=== PATIENT | male | born 1955 | race Caucasian/White ===

== ENCOUNTER → 2017-12-20 | Outpatient (CLI) | payer BC | LOC: CIMAGING 08:41 | PROVIDERS: ATTEND Internal Medicine | DX: K80.20 Calculus of gallbladder without cholecystitis without obstruction (principal) | CPT/HCPCS: 76705-PO ==

== ENCOUNTER 2018-01-01 10:04 | Day surgery (SDC) | payer BC ==
[~2018-01-01 10:04] MED LIST: cefOXitin SODIUM 2 GM in NS 100 ML IV ONE
[2018-01-01] MEDS ORDERED: LIDOCAINE 1% 2 ML INJ ID PRN (10:24)
[2018-01-01] MEDS ORDERED: LR 1,000 ML IV ONE (10:24)
--- NOTE | 2018-01-01 12:13 | PDHPUP ---
History & Physical Update H&P update statement: This history and physical update is based on an assessment of the patient which was completed after admission or registration (within 24 hours), but prior to the surgery/procedure. H&P update: H&P reviewed & patient examined, no change in patient's condition since H&P completed
[2018-01-01] MEDS ORDERED: MIDAZOLAM 2 MG/2 ML VIAL IVP ONE (12:28)
--- NOTE | 2018-01-01 12:29 | PDANEPAE ---
ANE History of Present Illness here for lap janie DAVIS ANE Past Medical History - Cardiovascular History Hx Hypertension: Yes Hx Arrhythmias: No Hx Chest Pain: No Hx Coronary Artery / Peripheral Vascular Disease: No Hx CHF / Valvular Disease: No Hx Palpitations: Yes Cardiovascular History Comment: had bout of paplatations with light headedness in 2017 - cardiac workup was normal - Pulmonary History Hx COPD: No Hx Asthma/Reactive Airway Disease: Yes Hx Recent Upper Respiratory Infection: No Hx Oxygen in Use at Home: No Hx Sleep Apnea: No Sleep Apnea Screening Result - Last Documented: Positive Pulmonary History Comment: ISSA triggers only. asthma. stable pulmonary nodules - Neurologic History Hx Cerebrovascular Accident: No Hx Seizures: No Hx Dementia: No Neurologic History Comment: sciatica from herniated disk L5-S1 - receives injections when it flares up - Endocrine History Hx Diabetes: No - Renal History Hx Renal Disorders: No Renal History Comment: occasional blood in urine after prostatectomy radiation - Liver History Hx Hepatic Disorders: No - Neurological & Psychiatric Hx Hx Neurological and Psychiatric Disorders: No - Cancer History Hx Cancer: Yes Cancer History Comment: prostate cancer. 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 celiac disease - Other Health History Other Health History: wears glasses - Chronic Pain History Chronic Pain: No - Surgical History Prior Surgeries: prostatectomy. port placement. vasectomy. colonoscopies ANE Review of Systems Review of systems is: negative Review of Systems: - Exercise capacity Exercise capacity: >=4 METS METS (RN): 6 METS ANE Patient History - Allergies Allergies/Adverse Reactions: gluten Allergy (Verified 12/28/17 15:21) celiac disease morphine Allergy (Verified 12/28/17 15:03) flushing, hot povidone-iodine [From Betadine] Allergy (Verified 12/28/17 15:03) redness, rash soap [From Betadine] Allergy (Verified 12/28/17 15:03) redness, rash - Home Medications Home medications: home medication list seen and reviewed Home Medications: Adult One Daily Multivit Tab 12/28/17 [Last Taken 12/28/17] Aspirin 81mg (*) 12/28/17 [Last Taken 12/21/17] Calcium 12/28/17 [Last Taken 12/28/17] Fish Oil 1,000 mg Softgel 12/28/17 [Last Taken 12/21/17] Lisinopril 12/28/17 [Last Taken 12/31/17 21:00] Ranitidine HCl 12/28/17 [Last Taken 01/01/18 07:00] Symbicort 80-4.5 Mcg Inhaler 12/28/17 [Last Taken 01/01/18 10:52] Vitamin D3 12/28/17 [Last Taken 12/28/17] Zyrtec 12/28/17 [Last Taken 12/28/17] - NPO status NPO Since - Liquids (Date): 12/30/17 NPO Since - Liquids (Time): 07:30 NPO Since - Solids (Date): 12/31/17 NPO Since - Solids (Time): 19:00 - Smoking Hx Smoking Status: Former smoker - Family Anes Hx Family Hx Anesthesia Complications: none ANE Labs/Vital Signs - Vital Signs Blood Pressure: 164/89 Heart Rate: 71 Respiratory Rate: 18 O2 Sat (%): 99 Height: 182.88 cm Weight: 85.275 kg ANE Physical Exam - Airway Neck exam: FROM Mallampati Score: Class 1 Mouth exam: normal dental/mouth exam - Pulmonary Pulmonary: no respiratory distress - Cardiovascular Cardiovascular: regular rate and rhythym - ASA Status ASA Status: II ANE Anesthesia Plan Anesthesia Plan: general endotracheal anesthesia
[2018-01-01] MEDS ORDERED: PROPOFOL/EMULSION 500 MG/50 ML BOTTLE IV ONE (12:38)
[2018-01-01] MEDS ORDERED: fentaNYL 100 MCG/2 ML INJ ONE ×2 (12:38→13:23)
[2018-01-01] MEDS ORDERED: ROCURONIUM 100 MG/10 ML VIAL ONE (12:38)
[2018-01-01] MEDS ORDERED: LIDOCAINE 2% 2 ML INJ ONE ×2 (12:41)
[2018-01-01] MEDS ORDERED: BUPIVACAINE/EPI 0.5% 30 ML SDV ONE (13:06)
[2018-01-01] MEDS ORDERED: DEXAMETHASONE 4 MG/ML VIAL ONE (13:12)
[2018-01-01] MEDS ORDERED: ONDANSETRON 4 MG/2 ML VIAL ONE (13:12)
[2018-01-01] MEDS ORDERED: fentaNYL 100 MCG/2 ML INJ IVP PRN (13:20)
[2018-01-01] MEDS ORDERED: LR 500 ML IV PRN (13:20)
[2018-01-01] MEDS ORDERED: ALBUTEROL 3 ML DEYVIAL IH PRN (13:20)
[2018-01-01] MEDS ORDERED: ONDANSETRON 4 MG/2 ML VIAL IVP PRN (13:20)
[2018-01-01] MEDS ORDERED: NALOXONE HCL 0.4 MG/ML INJ IVP PRN ×2 (13:20→14:42)
[2018-01-01] MEDS ORDERED: HYDROmorphONE/DILAUDID 2 MG/ML INJ IVP PRN (13:20)
[2018-01-01] MEDS ORDERED: PROMETHAZINE HCL 25 MG/ML INJ IVP PRN (13:20)
[2018-01-01] MEDS ORDERED: DEXAMETHASONE 4 MG/ML VIAL IVP PRN (13:20)
[2018-01-01] MEDS ORDERED: KETOROLAC 30 MG/1 ML SDV ONE (14:24)
[2018-01-01] MEDS ORDERED: GLYCOPYRROLATE 0.2 MG/1 ML VIAL ONE ×2 (14:26)
[2018-01-01] MEDS ORDERED: NEOSTIGMINE METHYLSULFATE 5 MG/5 ML SYR ONE (14:26)
--- NOTE | 2018-01-01 14:37 | POSTOPPROG ---
Post Op Note Date of Operation: 01/01/18 Surgeon: Narciso Calvillo Anesthesiologist: Dr. Barragan Anesthesia: GET(General Endotracheal) Pre-op Diagnosis: Symp cholelithiasis Post-op Diagnosis: same Procedure: SILS cholecystectomy Inf/Abcess present in the surg proc area at time of surgery?: No EBL: Minimal
[2018-01-01] MEDS ORDERED: LABETALOL HCL 5 MG/ML 20 ML MDV IVP PRN (14:42)
--- NOTE | 2018-01-01 14:42 | POSTANESTH ---
Post Anesthetic Evaluation Cardiovascular Status: Normal, Stable Respiratory Status: Normal, Stable Level of Consciousness/Mental Status: Mildly Sleepy, Arousable Pain Control: Adequate, Prn Tx Ordered Nausea/Vomiting Control: Adequate, Prn Tx Ordered Complications Possibly Related to Anesthesia: None Noted
--- NOTE | 2018-01-01 15:08 | GOP ---
DATE OF OPERATION: 01/01/2018 SURGEON: Kar Calvillo MD ANESTHESIA: General endotracheal anesthesia. ANESTHESIOLOGIST: Dr. Barragan PREOPERATIVE DIAGNOSIS: Symptomatic cholelithiasis. POSTOPERATIVE DIAGNOSIS: Symptomatic cholelithiasis. PROCEDURE PERFORMED: Da Jorge single site cholecystectomy. FINDINGS: The patient had stones and minimal inflammation of the gallbladder. ESTIMATED BLOOD LOSS: 20 cc. INDICATIONS: 62-year-old male with a history of abdominal pain. Ultrasound demonstrated gallstones. Risks and benefits of procedure were discussed with the patient and his family, their questions were answered. They wished to proceed. DESCRIPTION OF PROCEDURE: The patient was in the supine position. After the induction of adequate general endotracheal anesthesia, the patient was prepped and draped in the standard surgical fashion. Marcaine 0.5% was injected throughout the umbilical area. A longitudinal incision was made through the umbilicus and carried down to subcutaneous tissue with Bovie cautery and blunt dissection. The fascia was exposed and divided vertically in the midline. The fascia was elevated, and the abdomen was carefully entered. A 2.5-cm incision was made and the single site trocar was placed carefully. Next, the camera trocar was placed into the single site trocar and the camera itself followed. The area was inspected and no damage was seen from trocar placement. At this point, the robot was moved into position. The patient was then tilted into reverse Trendelenburg and the camera port was docked. Next, the facility assistant port was placed and the curved robotic arm ports were placed. These were all placed under direct vision without incident. The robot was fully docked and the dissection proceeded robotically. Adhesions were taken down using blunt dissection and Bovie cautery. The cystic structures were then dissected similarly. The cystic duct and cystic artery were clearly identified. In addition, the subhepatic space was dissected. Once this critical view was obtained, the cystic duct and artery were clipped and divided. The gallbladder was then elevated off the liver bed using Bovie cautery and blunt dissection. The gallbladder was grasped in the facility assistant port. The robot itself was undocked and the patient returned to the neutral position. The single site port and facility assistant trocar were removed together. The gallbladder was then extracted. The abdomen was thoroughly irrigated and aspirated. Good hemostasis was noted. The fascia at the trocar site was then closed using 0 Vicryl in a running fashion. Wounds were thoroughly irrigated. Skin was closed with 4-0 Monocryl in a subcuticular stitch. The wound was then sterilely dressed. The patient was extubated and taken to PACU in stable condition. COMPLICATIONS: None. DRAINS: None. /[id number]/MODL MTDD
[2018-01-01] MEDS ORDERED: HYDROCODONE/APAP 5/325 TAB ONE (15:11)
[2018-01-01] MEDS: oxyCODONE IR 5 MG TAB PO PRN ×2 (15:16→15:42)
[2018-01-01] MEDS ORDERED: oxyCODONE IR 5 MG TAB ONE ×2 (15:16→15:41)
[2018-01-01 16:40] VITALS: BP 158/93
== END 2018-01-01 17:23 | disposition home or self-care (01) ==
LOC: FSGY 10:04
PROVIDERS: ATTEND Surgery
DX: K80.20 Calculus of gallbladder without cholecystitis without obstruction (principal)
CPT/HCPCS: J0694; J1100; J1885; J2250; J2405; J2704; J2710; J3010

== ENCOUNTER 2018-02-07 22:15 | Inpatient (IN) | payer BC ==
[2018-02-07] MEDS ORDERED: NS 1,000 ML IV ONE (22:42)
[2018-02-07] MEDS ORDERED: FAMOTIDINE 20 MG/NACL 50 ML IV ONE (22:42)
[2018-02-07] MEDS ORDERED: KETOROLAC 15 MG/1 ML SDV IVP ONE (22:42)
--- NOTE | 2018-02-07 22:43 | EDPHY ---
H & P Stated Complaint: ABDOMINAL PAIN Time Seen by Provider: 02/07/18 22:23 HPI/ROS: HPI The patient presents with abdominal pain that began about 1 hr ago after eating a meal of pulled pork, lentil soup, green beans and wine. The pain started slowly and got progressively worse, it is epigastric and radiates throughout his abdomen. It is intermittent and quite severe at its most intense. It is associated with nausea without any vomiting. He took a dose of Gas-X as well as hydrocodone but his symptoms persisted. He has had normal bowel movements and has not had a fever. On January 01 he underwent DiVinci assisted Single Site cholecystectomy by Dr. Calvillo with no complications. He has been doing well postoperatively and has been able to eat normally.. REVIEW OF SYSTEMS 10 systems were reviewed and negative with the exception of the elements mentioned in the history of present illness. PMHx: Status post cholecystectomy, celiac disease, hypertension, asthma Soc Hx: Here with his PHYSICAL General Appearance: Alert, no distress Eyes: Pupils equal and round no pallor or injection ENT, Mouth: Mucous membranes moist Respiratory: There are no retractions, lungs are clear to auscultation Cardiovascular: Regular rate and rhythm Gastrointestinal: Abdomen is soft and tender in the epigastrium and right upper quadrant without rebound or guarding Neurological: A&O, moves all extremities Skin: Warm and dry, no rashes Musculoskeletal: Neck is supple non tender Extremities: symmetrical, full range of motion Psychiatric: Patient is oriented X 3, there is no agitation Source: Patient, Old records Exam Limitations: No limitations - Personal History Current Tetanus/Diphtheria Vaccine: Yes Current Tetanus Diphtheria and Acellular Pertussis (TDAP): Yes - Medical/Surgical History Hx Diabetes: No Other PMH: CHOLECTOMY. HTN. ASTHMA - Social History Smoking Status: Former smoker Constitutional: Initial Vital Signs Temperature (C) 36.5 C 02/07/18 22:18 Heart Rate 94 02/07/18 22:18 Respiratory Rate 22 H 02/07/18 22:18 Blood Pressure 166/96 H 02/07/18 22:18 O2 Sat (%) 100 02/07/18 22:18 Allergies/Adverse Reactions: gluten Allergy (Verified 02/07/18 22:21) celiac disease morphine Allergy (Verified 02/07/18 22:21) flushing, hot povidone-iodine [From Betadine] Allergy (Verified 02/07/18 22:21) redness, rash soap [From Betadine] Allergy (Verified 02/07/18 22:21) redness, rash Home Medications: Medication Instructions Recorded Adult One Daily Multivit Tab 12/28/17 Aspirin 81mg (*) 12/28/17 Calcium 12/28/17 Fish Oil 1,000 mg Softgel 12/28/17 Lisinopril 12/28/17 Ranitidine HCl 12/28/17 Symbicort 80-4.5 Mcg Inhaler 12/28/17 Vitamin D3 12/28/17 Zyrtec 12/28/17 Medical Decision Making - Diagnostics Imaging Results: Imaging Impressions Abdomen Ultrasound 02/07/18 22:46 Impression: 1. Compared to 12/20/2017, the patient's gallbladder has been removed. 2. Interim development of mild relative common bile duct and pancreatic ductal dilatation, of uncertain significance. There is no choledocholithiasis observed. The possibility of a postoperative "reservoir" type affect is mentioned; however, if there is further clinical concern, an MRCP could be considered. 3. Stable appearance of a couple cysts seen in the lower pole of the right kidney. 4. If there is further clinical concern regarding pancreatitis given the patient 's elevated serum lipase level, a contrast-enhanced CT scan of the abdomen could also be considered. Findings were discussed with Nitza Villanueva MD at 23:59, on 02/07/2018. Imaging: Discussed imaging studies w/ train caller Radiologist Differential Diagnosis: 62-year-old male who is about 1 month status post cholecystectomy for symptomatic cholelithiasis who presents from home with epigastric abdominal pain after eating. Differential diagnosis includes retained CBD stone, gastritis, gastroenteritis, postoperative infection or bleed. In the emergency department, patient received IV fluids, medication for pain with improvement in his symptoms. Labs returned in demonstrated transaminitis with elevated lipase consistent with likely pancreatitis. His right upper quadrant ultrasound demonstrated slightly dilated CBD though it did taper down to a normal size and no retained gallstones were visualized. I feel he should be observed in the hospital with possible MRCP performed later if his symptoms return. I do not suspect alcohol or medication as cause of patient's pancreatitis. He has no prior history of pancreatitis. I have discussed the case with Dr. Erazo who will admit the patient. - Data Points Laboratory Results: Laboratory Results 02/07/18 22:40 02/07/18 22:40 02/07/18 02/07/18 22:40 22:40 WBC 6.32 10^3/uL 10^3/uL (3.80-9.50) RBC 4.58 10^6/uL 10^6/uL (4.40-6.38) Hgb 13.7 g/dL g/dL (13.7-17.5) Hct 38.7 % L % (40.0-51.0) MCV 84.5 fL fL (81.5-99.8) MCH 29.9 pg pg (27.9-34.1) MCHC 35.4 g/dL g/dL (32.4-36.7) RDW 13.3 % % (11.5-15.2) Plt Count 240 10^3/uL 10^3/uL (150-400) MPV 9.3 fL fL (8.7-11.7) Neut % (Auto) 66.6 % % (39.3-74.2) Lymph % (Auto) 20.9 % % (15.0-45.0) [place] % (Auto) 9.7 % % (4.5-13.0) Eos % (Auto) 1.9 % % (0.6-7.6) Baso % (Auto) 0.6 % % (0.3-1.7) Nucleat RBC Rel Count 0.0 % % (0.0-0.2) Absolute Neuts (auto) 4.21 10^3/uL 10^3/uL (1.70-6.50) Absolute Lymphs (auto) 1.32 10^3/uL 10^3/uL (1.00-3.00) Absolute Monos (auto) 0.61 10^3/uL 10^3/uL (0.30-0.80) Absolute Eos (auto) 0.12 10^3/uL 10^3/uL (0.03-0.40) Absolute Basos (auto) 0.04 10^3/uL 10^3/uL (0.02-0.10) Absolute Nucleated RBC 0.00 10^3/uL 10^3/uL (0-0.01) Immature Gran % 0.3 % % (0.0-1.1) Immature Gran # 0.02 10^3/uL 10^3/uL (0.00-0.10) Sodium 136 mEq/L mEq/L (135-145) Potassium 3.5 mEq/L mEq/L (3.3-5.0) Chloride 103 mEq/L mEq/L (97-110) Carbon Dioxide 21 mEq/l L mEq/l (22-31) Anion Gap 12 mEq/L mEq/L (6-14) BUN 14 mg/dL mg/dL (7-23) Creatinine 1.2 mg/dL mg/dL (0.7-1.3) Estimated GFR > 60 Glucose 113 mg/dL H mg/dL (70-100) Calcium 10.1 mg/dL mg/dL (8.5-10.4) Total Bilirubin 0.6 mg/dL mg/dL (0.1-1.4) AST 149 IU/L H IU/L (17-59) ALT 99 IU/L H IU/L (21-72) Alkaline Phosphatase 100 IU/L IU/L (38-126) Total Protein 7.0 g/dL g/dL (6.3-8.2) Albumin 4.3 g/dL g/dL (3.5-5.0) Lipase 8299 IU/L H IU/L (23-300) Medications Given: Sodium Chloride (Ns) 1,000 mls @ 125 mls/hr IV CONT PEDRO Stop: 08/07/18 00:29 Last Admin: 02/08/18 01:59 Dose: 1,000 mls Discontinued Medications Sodium Chloride (Ns) 1,000 mls @ 0 mls/hr IV EDNOW ONE; Wide Open PRN Reason: Protocol Stop: 02/07/18 22:43 Last Admin: 02/07/18 22:49 Dose: 1,000 mls Famotidine/Sodium Chloride (Pepcid 20 Mg (Premix)) 50 mls @ 200 mls/hr IV EDNOW ONE Stop: 02/07/18 22:56 Last Admin: 02/07/18 22:48 Dose: 50 mls Ketorolac Tromethamine (Toradol) 15 mg IVP EDNOW ONE Stop: 02/07/18 22:43 Last Admin: 02/07/18 22:47 Dose: 15 mg Departure - Departure Disposition: [facility]
[2018-02-07 22:49] LABS: PLATELET COUNT 240 10^3/uL (150-400)
[2018-02-08] MEDS ORDERED: ONDANSETRON 4 MG/2 ML VIAL IVP PRN (00:30)
[2018-02-08] MEDS ORDERED: LORazepam 2 MG/ML INJ IVP PRN (00:30)
[2018-02-08] MEDS ORDERED: ONDANSETRON DISINTEGRATING 4 MG TAB PO PRN (00:30)
[2018-02-08] MEDS ORDERED: NS 1,000 ML IV SCH (00:30)
[2018-02-08] MEDS ORDERED: HYDROmorphONE/DILAUDID 1 MG/ML INJ IVP PRN (03:52)
--- NOTE | 2018-02-08 04:00 | PDGENHP ---
History and Physical - Chief Complaint Abdominal pain - History of Present Illness Source-patient provides history appears reliable. EMR was reviewed and case discussed with ED provider. HPI-this is a very pleasant 62-year-old gentleman with past medical history significant for GERD, HTN, celiac disease, asthma who presents emergency department today with complaints of epigastric abdominal pain. Pain occurred suddenly on approximately 9:00 p.m. Before arrival to the emergency department. Patient describes pain as cramping severe intermittent. He noted associated abdominal distension. Patient reports he had a normal bowel movement today. Patient denies any history of melena or hematochezia recently. Patient does have a history of celiac disease reports that he did develop some diarrhea week ago. Patient reports that his pain did worsen with food intake. He reports that he went out for dinner and enjoyed a he had a robotic cholecystectomy completed [address] Calvillo. He reports uneventful recovery and has been enjoying a regular diet. Patient does note that he eats his meals very slowly but today he notes he ate his meal much faster today. Patient denies any fevers or chills. He did developed of slight nausea without any vomiting at the peak of his pain. In the emergency department, patient received Toradol, famotidine and IV fluid with improvement in his symptoms. Patient reports he continues to have bloating but his pain has improved. History Information - Allergies/Home Medication List Allergies/Adverse Reactions: gluten Allergy (Verified 02/07/18 22:21) celiac disease morphine Allergy (Verified 02/07/18 22:21) flushing, hot povidone-iodine [From Betadine] Allergy (Verified 02/07/18 22:21) redness, rash soap [From Betadine] Allergy (Verified 02/07/18 22:21) redness, rash Home Medications: Adult One Daily Multivit Tab 12/28/17 [Last Taken 12/28/17] Aspirin 81mg (*) 12/28/17 [Last Taken 12/21/17] Calcium 12/28/17 [Last Taken 12/28/17] Fish Oil 1,000 mg Softgel 12/28/17 [Last Taken 12/21/17] Lisinopril 12/28/17 [Last Taken 12/31/17 21:00] Ranitidine HCl 12/28/17 [Last Taken 01/01/18 07:00] Symbicort 80-4.5 Mcg Inhaler 12/28/17 [Last Taken 01/01/18 10:52] Vitamin D3 12/28/17 [Last Taken 12/28/17] Zyrtec 12/28/17 [Last Taken 12/28/17] I have personally reviewed and updated: family history, medical history, social history, surgical history - Past Medical History Additional medical history: GERD, HTN, prostate cancer status post prostatectomy , celiac disease, asthma, polyp - Surgical History Additional surgical history: Prostatectomy, cholecystectomy - Family History Additional family history: Sister, daughter, son - diagnosed with celiac disease. -history of colon cancer age 89 from other causes. Suspect that she also had celiac disease by history but was never formally diagnosed. Father with history of alcoholic pancreatitis - Social History Smoking Status: Never smoked Alcohol Use: Occasionally (Patient drinks occasional wonder cider with dinner five or fewer times per week.) Drug Use: None Review of Systems Review of Systems: ROS: 10pt was reviewed & negative except for what was stated in HPI & below Constitutional: Denies: chills, fever Cardiac: Reports: no symptoms Respiratory: Reports: no symptoms Gastrointestinal: Reports: abdominal pain, nausea. Denies: black stools, rectal bleeding, constipation, diarrhea Genitourinary: Reports: no symptoms Muscolosketal: Reports: no symptoms Skin: Reports: no symptoms Neurological: Reports: no symptoms Physical Exam Physical Exam: Selected Entries 02/07/18 22:18 Heart Rate 94 Respiratory 22 H Rate O2 Sat (%) 100 Temperature (C) 36.5 C Blood Pressure 166/96 H Mean Arterial 119 H Pressure (MAP) Temp Pulse Resp BP Pulse Ox 36.6 C 89 18 156/87 H 98 02/08/18 02:02 02/08/18 02:02 02/08/18 02:02 02/08/18 02:02 02/08/18 02:02 Constitutional: no apparent distress, uncomfortable (Minimally uncomfortable with movement.), other (NAD. Pleasant adult gentleman is lying quietly in bed.) Eyes: PERRL (Decreased reactivity light bilaterally but symmetric.), anicteric sclera, EOMI, No scleral injection Ears, Nose, Mouth, Throat: moist mucous membranes, other (No nasal discharge.), No poor dentition Cardiovascular: regular rate and rhythym, no murmur, rub, or gallop, pulses symmetric bilaterally, No edema Peripheral Pulses: 2+: dorsalis-pedis (R), dorsalis-pedis (L) Respiratory: no respiratory distress, no rales or rhonchi, clear to auscultation Gastrointestinal: normoactive bowel sounds, soft, non-tender abdomen, distension (Mildly distended.), other (Multiple well-healed surgical scars.), No tenderness Genitourinary: no bladder tenderness, No fernandez in urethra Skin: warm, normal color, no rashes or abrasions Musculoskeletal: full muscle strength, no muscle tenderness, other (Patient sits up independently. Moves all extremities.), No generalized weakness Neurologic: AAOx3, sensation intact bilaterally, other (Grossly nonfocal exam.) , No facial droop Psychiatric: interacting appropriately, not anxious, not encephalopathic, thought process linear Lab Data & Imaging Review 02/07/18 22:40 02/07/18 22:40 WBC 6.32 10^3/uL (3.80-9.50) 02/07/18 22:40 RBC 4.58 10^6/uL (4.40-6.38) 02/07/18 22:40 Hgb 13.7 g/dL (13.7-17.5) 02/07/18 22:40 Hct 38.7 % (40.0-51.0) L 02/07/18 22:40 MCV 84.5 fL (81.5-99.8) 02/07/18 22:40 MCH 29.9 pg (27.9-34.1) 02/07/18 22:40 MCHC 35.4 g/dL (32.4-36.7) 02/07/18 22:40 RDW 13.3 % (11.5-15.2) 02/07/18 22:40 Plt Count 240 10^3/uL (150-400) 02/07/18 22:40 MPV 9.3 fL (8.7-11.7) 02/07/18 22:40 Neut % (Auto) 66.6 % (39.3-74.2) 02/07/18 22:40 Lymph % (Auto) 20.9 % (15.0-45.0) 02/07/18 22:40 [place] % (Auto) 9.7 % (4.5-13.0) 02/07/18 22:40 Eos % (Auto) 1.9 % (0.6-7.6) 02/07/18 22:40 Baso % (Auto) 0.6 % (0.3-1.7) 02/07/18 22:40 Nucleat RBC Rel Count 0.0 % (0.0-0.2) 02/07/18 22:40 Absolute Neuts (auto) 4.21 10^3/uL (1.70-6.50) 02/07/18 22:40 Absolute Lymphs (auto) 1.32 10^3/uL (1.00-3.00) 02/07/18 22:40 Absolute Monos (auto) 0.61 10^3/uL (0.30-0.80) 02/07/18 22:40 Absolute Eos (auto) 0.12 10^3/uL (0.03-0.40) 02/07/18 22:40 Absolute Basos (auto) 0.04 10^3/uL (0.02-0.10) 02/07/18 22:40 Absolute Nucleated RBC 0.00 10^3/uL (0-0.01) 02/07/18 22:40 Immature Gran % 0.3 % (0.0-1.1) 02/07/18 22:40 Immature Gran # 0.02 10^3/uL (0.00-0.10) 02/07/18 22:40 Sodium 136 mEq/L (135-145) 02/07/18 22:40 Potassium 3.5 mEq/L (3.3-5.0) 02/07/18 22:40 Chloride 103 mEq/L (97-110) 02/07/18 22:40 Carbon Dioxide 21 mEq/l (22-31) L 02/07/18 22:40 Anion Gap 12 mEq/L (6-14) 02/07/18 22:40 BUN 14 mg/dL (7-23) 02/07/18 22:40 Creatinine 1.2 mg/dL (0.7-1.3) 02/07/18 22:40 Estimated GFR > 60 02/07/18 22:40 Glucose 113 mg/dL (70-100) H 02/07/18 22:40 Calcium 10.1 mg/dL (8.5-10.4) 02/07/18 22:40 Total Bilirubin 0.6 mg/dL (0.1-1.4) 02/07/18 22:40 AST 149 IU/L (17-59) H 02/07/18 22:40 ALT 99 IU/L (21-72) H 02/07/18 22:40 Alkaline Phosphatase 100 IU/L (38-126) 02/07/18 22:40 Total Protein 7.0 g/dL (6.3-8.2) 02/07/18 22:40 Albumin 4.3 g/dL (3.5-5.0) 02/07/18 22:40 Lipase 8299 IU/L (23-300) H 02/07/18 22:40 Imaging Review: Impression: 1. Compared to 12/20/2017, the patient's gallbladder has been removed. 2. Interim development of mild relative common bile duct and pancreatic ductal dilatation, of uncertain significance. There is no choledocholithiasis observed. The possibility of a postoperative "reservoir" type affect is mentioned; however, if there is further clinical concern, an MRCP could be considered. 3. Stable appearance of a couple cysts seen in the lower pole of the right kidney. 4. If there is further clinical concern regarding pancreatitis given the patient 's elevated serum lipase level, a contrast-enhanced CT scan of the abdomen could also be considered. Findings were discussed with Nitza Villanueva MD at 23:59, on 02/07/2018. Dictated By: Rodrigo Gutierrez MD Visualized and Interpreted imaging results: Yes Assessment & Plan Assessment: Pleasant 62-year-old gentleman with history of GERD, HTN, celiac disease, asthma who presents emergency department today with complaints of abdominal distension and pain. # acute pancreatitis - Etiology unknown at this time. Ultrasound does not reveal any obstructive stone but there is evidence of dilation with tapering on the common bile duct as well as the pancreatic duct. Given patient with elevated lipase and elevated LFTs will plan to go ahead with MRCP in the morning. Pending findings may require additional discussion with GI. # epigastric pain - pain currently improved status post famotidine and Toradol in the emergency department. Patient has listed allergy to morphine reports that he tolerates all other opiates without issues. Hydromorphone has been ordered p.r.n.. Ativan available also p.r.n. For spasm type pain. #transaminitis - as noted above no evidence of obstructive process. Patient with mildly elevated LFTs. Bilirubin is within normal limits however. Repeat LFTs in the morning. MRCP in the morning as noted above. chronic medical issues #benign essential HTN - BPs slightly high normal. prn hydralazine while npo. resume lisinopril when diet advanced. #GERD - continue famotidine #celiac disease - sx currently controlled. on gluten free diet. #asthma - continue symbicort. albuterol prn FEN - IVF overnight. NPO. electrolyte monitoring replacement p.r.n. PPX - SCDs. Holding anticoagulation pending additional imaging and workup. Cor status-full Disposition-patient admitted to inpatient status on the medical floor for pain management, monitoring and evaluation of his acute pancreatitis. Anticipate greater than 2 midnight stay.
--- NOTE | 2018-02-08 06:05 | PDMN ---
Medical Necessity Medical necessity: MCG: M250 pancreatitis 2 days: pt with acute abd pain, cramping, with distention, Lipase elevated 8299, AST 149, ALT 99. pt will be NPO with further monitoring, eval and tx of pancreatitis. anticipate > 2 MN
[2018-02-08 06:06] LABS: PLATELET COUNT 202 10^3/uL (150-400)
[2018-02-08] MEDS ORDERED: LORazepam 2 MG/ML INJ IVP ONE (07:00)
[2018-02-08 13:32] LABS: HEPATITIS A ANTIBODY IGM (BCH) NEGATIVE (NEGATIVE)
--- NOTE | 2018-02-08 14:17 | ASMTCMCOM ---
CM Note CM Note Notes: Patient plan of care reviewed in rounds. 62 year old male admitted through ED with c/o abdominal pain. Recent appendectomy in December. GI to see. No needs currently identified. CM to follow for needs. Plan: Likely to dc independently when medically cleared . Date Signed: 02/08/2018 02:16 PM Electronically Signed By:Greta Haro RN
--- NOTE | 2018-02-08 15:25 | GCON ---
DATE OF CONSULTATION: 02/08/2018 CHIEF COMPLAINT: Abdominal pain. HISTORY OF PRESENT ILLNESS: I am asked to see this patient in consultation by Dr. Erazo for chief co mplaint of abdominal pain. Patient is a pleasant 62-year-old followed by Dr. Griffith for screenin g colonoscopies, also was diagnosed in 2009 with celiac sprue, who had been having issues with interm ittent abdominal pain, eventually found to have cholecystitis with reports that his gallbladder was " chock full of stones." Underwent a cholecystectomy January 01, 2018. Did well postoperatively until about a week ago, had a brief episode of colicky-type epigastric pain that then resolved, and then camilo bray yesterday had severe episode of pain radiating to his back, was unable to get comfortable. Jess nted to the emergency room, was noted to have elevated LFTs and elevated lipase. The patient does dr ink 1 glass of wine or a drink a night, but had no increase in alcohol use lately. Does have a famil y history of pancreatitis in his father. This afternoon, he is feeling much better and his pain is i mproved. ALLERGIES: Gluten, morphine, Betadine, and soap. MEDICATIONS: Multivitamins, baby aspirin, inhaler, ranitidine, lisinopril, and Zyrtec. PAST MEDICAL HISTORY: Noted for celiac sprue, GERD, hypertension, status post prostate cancer with p rostatectomy, history of colon polyps, and asthma. SOCIAL HISTORY: He does have a drink a few times per week. He has never smoked. FAMILY HISTORY: Notable for pancreatitis in his father. He did not know the etiology. REVIEW OF SYSTEMS: I performed a complete review of systems which was negative except for the pertin ent positives and negatives noted above in the HPI. PHYSICAL EXAM: He is afebrile at 36.9, BP 165/74, pulse 79. He is alert and oriented. EYES: No sc leral icterus. HEENT: No oral lesions. CARDIOVASCULAR: Regular rhythm. CHEST: Clear to ausculta tion. ABDOMEN: Tympanic, slightly distended, but soft without rebound. NEUROLOGIC: Nonfocal. SKI N: No lesions. LABORATORY DATA: Today, white count is normal at 6.2, hematocrit is 35.9, platelets are 202. His LF Ts have increased today from AST of 149, now 619; ALT was 99, now 496. Alkaline phosphatase remains normal at 93 and total bilirubin has remained normal at 0.6. His lipase on presentation was 8299, no w today is greater than 20,000. The patient had an MRCP which did not demonstrate any ductal dilatio n. No filling defects were seen and pancreas was reported as appearing normal. ASSESSMENT: Confusing picture of patient with colicky-type pain since cholecystectomy approximately 4 weeks ago. He has increasing LFTs with elevated lipase. I am most concerned about a common duct s tone, albeit somewhat unusual that his alkaline phosphatase and bilirubin are normal and MRCP did not show a filling defect. However, MRCP can miss small stones. It is possible it may have floated up or possibly he may have passed a stone. However, given his rising LFTs and lipase I would recommend that his common duct be cleared of any obstruction and for assessment for other causes of his pancrea titis. I have discussed with Dr. Cornejo who agrees to proceed with an endoscopic ultrasound and ERCP f or clearance of his common duct. PLAN: We will proceed with endoscopic ultrasound and ERCP today. Further recommendations to follow. Thank you for this consult. /[id number]/MODL
[2018-02-08] MEDS ORDERED: ALBUTEROL 60 PUFFS/8 GM MDI IH PRN (15:53)
--- NOTE | 2018-02-08 15:57 | HOSPPROG ---
Hospitalist Progress Note Assessment/Plan: #Acute pancreatitis: lipase now >20K. Drinks small amount Etoh. Sxs c/w stone with recurrent episodes this week. None on MRCP. ERCP/EUS tomorrow -afebrile. #Acute pain: PRN opioids #Hepatitis: Hep A pending. No risks for B/C #Diarrhea: GI panel neg #HTN: resume meds when taking PO #h/o prostate cancer: s/p prostatectomy #Diet: NPO #DVT ppx: SCDs Disp: inpatient admission for pain control, ERCP/EUS (14:00-14:30) Direct care time spent: 30min bedside with patient and d/w Dr. Jung Subjective: mild epigastric pain Objective: Vital Signs Temp Pulse Resp BP Pulse Ox 36.8 C 70 16 148/91 H 99 02/08/18 15:06 02/08/18 15:06 02/08/18 15:06 02/08/18 15:06 02/08/18 15:06 Microbiology 02/08/18 12:25 Gastrointestinal Tract Panel (PCR) - Final Stool No Organism Detected By Pcr Laboratory Results 02/08/18 04:53 02/08/18 04:53 02/07/18 02/08/18 02/09/18 05:59 05:59 05:59 Intake Total 497 Output Total 700 Balance -203 - Time Spent With Patient Time Spent with Patient: greater than 35 minutes Time Spent with Patient: Greater than 35 minutes spent on this patients care, greater than 50% of time spent counseling, educating, and coordinating care regarding the above mentioned plan. - Physical Exam Constitutional: no apparent distress Eyes: PERRL Ears, Nose, Mouth, Throat: moist mucous membranes Cardiovascular: regular rate and rhythym Respiratory: no respiratory distress Gastrointestinal: tenderness (mild epigastric TTP), distension (mild) Genitourinary: no bladder fullness Skin: warm Musculoskeletal: full muscle strength Neurologic: AAOx3, CN II-XII Intact Psychiatric: interacting appropriately ICD10 Worksheet Patient Problems: Problems Problem Status Onset Pancreatitis Acute - ICD10 Problem Qualifiers (1) Pancreatitis
[2018-02-08] MEDS: D5W NS 1,000 ML IV SCH ×2 (16:53→22:35)
[2018-02-08] MEDS: FAMOTIDINE 20 MG/NACL 50 ML IV SCH (20:51)
[2018-02-08] MEDS: ACETAMINOPHEN 325 MG TAB PO PRN (22:24)
[2018-02-09] MEDS: ACETAMINOPHEN 325 MG TAB PO PRN ×2 (02:59→03:10)
[2018-02-09] MEDS ORDERED: HYDROmorphONE/DILAUDID 2 MG/ML INJ IVP PRN (03:30)
[2018-02-09] MEDS ORDERED: KETOROLAC 15 MG/1 ML SDV IVP PRN (08:14)
--- NOTE | 2018-02-09 08:39 | HOSPPROG ---
Hospitalist Progress Note Assessment/Plan: # pancreatitis, transaminitis s/p recent cholecystectomy - most c/w choledocholithiasis - agree with ERCP today, will hold on abx for now - cont IVF, pain control, NPO - could advance diet post ERCP # MARTIN - start toradol; no neuro deficits # htn - holding meds, BP slowly increasing # dvt ppx - SCDs Subjective: abd pain better; has not eaten in 2 days; c/o headache Objective: Vital Signs Temp Pulse Resp BP Pulse Ox 36.6 C 63 99 H 137/91 H 97 02/09/18 03:11 02/09/18 08:16 02/09/18 08:16 02/09/18 08:16 02/09/18 03:11 Microbiology 02/08/18 12:25 Gastrointestinal Tract Panel (PCR) - Final Stool No Organism Detected By Pcr Laboratory Results 02/08/18 04:53 02/09/18 05:55 02/08/18 02/09/18 02/10/18 05:59 05:59 05:59 Intake Total 497 0 1100 Output Total 700 Balance -203 0 1100 chart reviewed MRI reviewed US reviewed - Physical Exam Constitutional: no apparent distress, appears nourished Cardiovascular: regular rate and rhythym, no murmur, rub, or gallop Respiratory: no respiratory distress, no rales or rhonchi, clear to auscultation Gastrointestinal: soft, non-tender abdomen, no palpable masses ICD10 Worksheet Patient Problems: Problems Problem Status Onset Pancreatitis Acute
[2018-02-09] MEDS: D5W NS 1,000 ML IV SCH (09:06)
[2018-02-09] MEDS: FAMOTIDINE 20 MG/NACL 50 ML IV SCH ×2 (09:48→20:29)
[2018-02-09] MEDS ORDERED: GLUCAGON HCL 1 MG VIAL ONE (10:56)
[2018-02-09] MEDS ORDERED: IOTHALAMATE MEG (CONRAY) 50 ML VIAL IV ONE (10:56)
[2018-02-09] MEDS ORDERED: INDOMETHACIN 50 MG SUPP PR ONE ×2 (10:57→12:38)
[2018-02-09] MEDS ORDERED: LIDOCAINE 2% 2 ML INJ ONE ×3 (12:02→12:03)
[2018-02-09] MEDS ORDERED: SUCCINYLCHOLINE CHLORIDE 200 MG/10 ML SYR IVP ONE (12:02)
[2018-02-09] MEDS ORDERED: ROCURONIUM 50 MG/5 ML VIAL ONE (12:02)
--- NOTE | 2018-02-09 12:02 | PDANEPAE ---
ANE History of Present Illness ercp ANE Past Medical History - Cardiovascular History Hx Hypertension: Yes Hx Arrhythmias: No Hx Chest Pain: No Hx Coronary Artery / Peripheral Vascular Disease: No Hx CHF / Valvular Disease: No Hx Palpitations: Yes Cardiovascular History Comment: had bout of paplatations with light headedness in 2017 - cardiac workup was normal - Pulmonary History Hx COPD: No Hx Asthma/Reactive Airway Disease: Yes Hx Recent Upper Respiratory Infection: No Hx Oxygen in Use at Home: No Hx Sleep Apnea: No Sleep Apnea Screening Result - Last Documented: Positive Pulmonary History Comment: ISSA triggers only. asthma. stable pulmonary nodules - Neurologic History Hx Cerebrovascular Accident: No Hx Seizures: No Hx Dementia: No Neurologic History Comment: sciatica from herniated disk L5-S1 - receives injections when it flares up - Endocrine History Hx Diabetes: No Hypothyroid: No Hyperthyroid: No Obesity: no - Renal History Hx Renal Disorders: No Renal History Comment: occasional blood in urine after prostatectomy radiation - Liver History Hx Hepatic Disorders: No - Neurological & Psychiatric Hx Hx Neurological and Psychiatric Disorders: No - Cancer History Hx Cancer: Yes Cancer History Comment: prostate cancer. 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 celiac disease - Other Health History Other Health History: wears glasses - Chronic Pain History Chronic Pain: No - Surgical History Prior Surgeries: prostatectomy. port placement. vasectomy. colonoscopies ANE Review of Systems Review of Systems: - Exercise capacity Exercise capacity: >=4 METS ANE Patient History - Allergies Allergies/Adverse Reactions: gluten Allergy (Verified 02/07/18 22:21) celiac disease morphine Allergy (Verified 02/07/18 22:21) flushing, hot povidone-iodine [From Betadine] Allergy (Verified 02/07/18 22:21) redness, rash soap [From Betadine] Allergy (Verified 02/07/18 22:21) redness, rash - Home Medications Home medications: home medication list seen and reviewed Home Medications: Aspirin [Aspirin 81mg (*)] 81 mg PO DAILY #0 12/28/17 [Last Taken 02/07/18] Budesonide/Formoterol Fumarate [Symbicort 80-4.5 Mcg Inhaler] 2 puffs IH BID #0 12/28/17 [Last Taken 02/07/18] Calcium Carbonate [Oyster Shell Calcium 500 mg (*)] 500 mg PO DAILY #0 12/28/17 [Last Taken 02/07/18] Cetirizine [ZyrTEC 10 mg (*)] 10 mg PO DAILY #0 12/28/17 [Last Taken 02/07/18] Cholecalciferol Vit D3 [Vitamin D3 (*)] 1,000 units PO DAILY #0 12/28/17 [Last Taken 02/07/18] Multivitamins [Multivitamin (*)] 1 each PO DAILY #0 12/28/17 [Last Taken ] [place]-3 Fatty Acids [Fish Oil 1000 mg (*)] 1,000 mg PO DAILY #0 12/28/17 [Last Taken 02/07/18] Ranitidine HCl [Zantac 75] 75 mg PO DAILY #0 12/28/17 [Last Taken 02/07/18] Albuterol [Proventil Inhaler HFA (*)] 1 puffs IH DAILY PRN 02/08/18 [Last Taken Unknown] Lisinopril [Zestril 5 mg (*)] 5 mg PO HS 02/08/18 [Last Taken 02/07/18] Lisinopril [Zestril 5 mg (*)] 10 mg PO DAILY 02/08/18 [Last Taken 02/07/18] - NPO status NPO Status: no food or drink >8 hours NPO Since - Liquids (Date): 02/07/18 NPO Since - Liquids (Time): 00:00 NPO Since - Solids (Date): 02/07/18 NPO Since - Solids (Time): 00:00 - Anes Hx Anes Hx: no prior problems - Smoking Hx Smoking Status: Former smoker - Alcohol Use Alcohol Use: Occasionally (Patient drinks occasional wonder cider with dinner five or fewer times per week.) - Family Anes Hx Family Hx Anesthesia Complications: none ANE Labs/Vital Signs - Labs Result Diagrams: 02/08/18 04:53 02/09/18 05:55 - Vital Signs Blood Pressure: 166/99 Heart Rate: 66 Respiratory Rate: 18 O2 Sat (%): 100 Height: 182.88 cm Weight: 84.822 kg ANE Physical Exam - Airway Mallampati Score: Class 2 Mouth exam: normal dental/mouth exam - Pulmonary Pulmonary: no respiratory distress - Cardiovascular Cardiovascular: regular rate and rhythym - ASA Status ASA Status: II ANE Anesthesia Plan Anesthesia Plan: general endotracheal anesthesia
[2018-02-09] MEDS ORDERED: ONDANSETRON 4 MG/2 ML VIAL ONE ×2 (12:03→13:18)
[2018-02-09] MEDS ORDERED: KETOROLAC 30 MG/1 ML SDV ONE (12:03)
[2018-02-09] MEDS ORDERED: DEXAMETHASONE 4 MG/ML VIAL ONE ×2 (12:03→13:48)
[2018-02-09] MEDS ORDERED: PROPOFOL 200 MG/20 ML VIAL ONE (12:04)
[2018-02-09] MEDS ORDERED: fentaNYL 100 MCG/2 ML INJ ONE (12:04)
[2018-02-09] MEDS ORDERED: MIDAZOLAM 2 MG/2 ML VIAL ONE (12:05)
--- NOTE | 2018-02-09 12:13 | PDGENHP ---
History & Physical Chief Complaint: pancreatitis History of Present Illness: 62 year old male presents for evaluation of elevated LFT, epigastric abdominal pain, and pancreatitis Pertinent Past, Social, Family History: pMHx: HTN, Celiac. PSurghx: CCY Relevant Physical Exam: HEENT: anicteric. CV: RRR +s1s2. Lungs: CTAB. Abd: soft, nt, + bs Cardiorespiratory Assessment: ASA 2
[2018-02-09] MEDS ORDERED: NS 500 ML IV PRN (12:51)
[2018-02-09] MEDS ORDERED: NALOXONE HCL 0.4 MG/ML INJ IVP PRN ×2 (12:51→13:11)
[2018-02-09] MEDS ORDERED: ALBUTEROL 3 ML DEYVIAL IH PRN (12:51)
[2018-02-09] MEDS ORDERED: SUGAMMADEX SODIUM 200 MG/2 ML VIAL IVP ONE (12:51)
[2018-02-09] MEDS ORDERED: ONDANSETRON 4 MG/2 ML VIAL IVP PRN (12:51)
[2018-02-09] MEDS ORDERED: fentaNYL 100 MCG/2 ML INJ IVP PRN (12:51)
--- NOTE | 2018-02-09 13:00 | GIREPORT ---
[facility] Surgical Services - Endoscopy Department Patient Name: Florentino Sandoval Procedure Date: 02/09/2018 12:04 PM Patient Type: Inpatient Attending MD/ ER Physician: Sarthak Cornejo MD Procedure: Upper EUS Indications: Abnormal pancreatic tests, Elevated liver enzymes, Acute pancreatitis Patient Profile: 62 year old male presents for evaluation of abnormal LFTs, acute pancreatitis, and epigastric abdominal pain. Providers: Sarthak Cornejo MD Medicines: General Anesthesia Complications: No immediate complications. Estimated blood loss: Minimal. Description of Procedure: After obtaining informed consent, the endoscope was passed under direct vision. Throughout the procedure, the patient's blood pressure, pulse, and oxygen saturations were monitored continuously. The Endosonoscope was introduced through the mouth, and advanced to the second part of duoden um. The Endoscope was introduced through the mouth, and advanced to the sec ond part of duodenum. The upper EUS was accomplished without difficulty. Th e esophagus, stomach, and duodenum were visualized endosonographically. T he patient tolerated the procedure well. Findings: Endoscopic Finding : The examined esophagus was normal. A small hiatal hernia was present. Patchy mildly erythematous mucosa was found in the gastric body and in the gastric antrum. Biopsies were taken with a cold forceps for histology. A few small sessile polyps were found on the greater curvature of the stomach. Biopsies were taken with a cold forceps for histology. The examined duodenum was normal. Endosonographic Finding : Pancreatic parenchymal abnormalities were noted in the entire pancreas. These consisted of hyperechoic foci. There was no sign of significant endosonographic abnormality in the visualized portion of the liver. No masses were identified. One stone was visualized endosonographically in the common bile duct. T he stone measured 3 mm in greatest dimension. The stone was round. It was hyperechoic. No lymphadenopathy seen. Estimated Blood Loss: Estimated blood loss was minimal. Post Op Diagnosis: - Normal esophagus. - Small hiatal hernia. - Erythematous mucosa in the gastric body and antrum. Biopsied. - A few gastric polyps. Biopsied. - Normal examined duodenum. - Pancreatic parenchymal abnormalities consisting of hyperechoic foci w ere noted in the entire pancreas. - There was no evidence of significant pathology in the visualized port ion of the liver. - The pancreatic duct had a prominently branched endosonographic appear ance in the entire pancreas. - One stone was visualized endosonographically in the common bile duct. Recommendation: - Perform an ERCP today. - Await pathology results. - Thank you for allowing me to participate in the care of your patient. Attending Participation: I personally performed the entire procedure. Sarthak Cornejo MD Sarthak Cornejo MD 02/09/2018 12:59:32 PM This report has been signed electronicallySarthak Cornejo MD Number of Addenda: 0 Note Initiated On: 02/09/2018 12:04 PM [email or web address]
--- NOTE | 2018-02-09 13:00 | GIREPORT ---
[facility] Surgical Services - Endoscopy Department Patient Name: Florentino Sandoval Procedure Date: 02/09/2018 11:18 AM Patient Type: Inpatient Attending MD/ ER Physician: Sarthak Cornejo MD Procedure: ERCP Indications: Common bile duct stone(s) Patient Profile: 62 year old male presents for CBD stone extraction. Providers: Sarthak Cornejo MD Medicines: General Anesthesia, Indomethacin 100 mg [place] Complications: No immediate complications. Estimated blood loss: Minimal. Description of Procedure: After obtaining informed consent, the scope was passed under direct vis ion. Throughout the procedure, the patient's blood pressure, pulse, and oxyg en saturations were monitored continuously. The Duodenalscope was introduc ed through the mouth, and advanced to the duodenum and used to inject cont rast into the bile duct. The ERCP was accomplished without difficulty. The patient tolerated the procedure well. Findings: A magnetic resonance imaging coordinator film of the abdomen was obtained. Surgical clips, consistent wi th a previous cholecystectomy, were seen in the area of the right upper quad rant of the abdomen. The esophagus was successfully intubated under direct vision. The scope was advanced to a normal major papilla in the descend ing duodenum without detailed examination of the pharynx, larynx and associ ated structures, and upper GI tract. The upper GI tract was grossly normal. A wire was passed into the biliary tree. The short-nosed traction sphincterotome was passed over the guidewire and the bile duct was then deeply cannulated. Contrast was injected. I personally interpreted the bile duct images. Ductal flow of contrast was adequate. Image quality was adequate. Contrast extended to the entire biliary tree. The lower third of the main bile duct contained one stone, which was 3 mm in diameter. A 1 0 mm biliary sphincterotomy was made with a traction (standard) sphincteroto me using pure cut current. The sphincterotomy oozed blood. The biliary ayesha e was swept with a 12 mm balloon starting at the bifurcation. Sludge was swep t from the duct. One stone was removed. No stones remained. Estimated Blood Loss: Estimated blood loss was minimal. Post Op Diagnosis: - Choledocholithiasis was found. Complete removal was accomplished by biliary sphincterotomy and balloon extraction. - A biliary sphincterotomy was performed. - The biliary tree was swept. Recommendation: - Return patient to hospital stone for ongoing care. - NPO. - Continue present medications. - Thank you for allowing me to paticipate in the care of your patient. Attending Participation: I personally performed the entire procedure. Sarthak Cornejo MD Sarthak Cornejo MD 02/09/2018 1:00:02 PM This report has been signed electronicallySarthak Cornejo MD Number of Addenda: 0 Note Initiated On: 02/09/2018 11:18 AM [email or web address]
[2018-02-09] MEDS ORDERED: LABETALOL HCL 5 MG/ML 20 ML MDV ONE (13:18)
[2018-02-09] MEDS: LABETALOL HCL 5 MG/ML 20 ML MDV IVP PRN ×2 (13:28→13:41)
--- NOTE | 2018-02-09 16:48 | ASMTCMCOM ---
CM Note CM Note Notes: Patient plan of care reviewed in rounds. He was for procedure this am and possible ERCP. Likely no needs at discharge. CM available should needs arise. Plan: Dc home no needs when medically cleared. Date Signed: 02/09/2018 04:47 PM Electronically Signed By:Greta Haro RN
[2018-02-10 04:37] LABS: PLATELET COUNT 214 10^3/uL (150-400)
[2018-02-10] MEDS: FAMOTIDINE 20 MG/NACL 50 ML IV SCH (10:40)
[2018-02-10 11:45] VITALS: BP 157/95
--- NOTE | 2018-02-11 11:54 | GDS ---
ALL DIAGNOSES: 1. Acute pancreatitis. 2. Choledocholithiasis. 3. Hypertension. 4. Transaminitis. 5. Mild anemia. HOSPITAL COURSE: This is a 62-year-old man who had a cholecystectomy about 5 weeks prior to his pres entation. He presented with severe right upper quadrant pain, found to have a significantly elevated lipase as well as a transaminitis. Imaging included an abdominal ultrasound as well as an abdominal M RI, which were negative for any signs of choledocholithiasis. Given his persistent symptoms, ERCP was obtained. This showed choledocholithiasis. Complete removal was accomplished with this biliary sphin cterotomy as well as balloon extraction. After the procedure, the patient feels much better. On the day of discharge, he has tolerated a full meal with no additional abdominal pain or nausea. Hi s labs have improved. His lipase is normal and his transaminases are trending down. AST is 57, his AL T is 225. His bilirubin has never been elevated. Seen by GI, who agrees with his disposition. He is o therwise discharged in stable condition with followup with his primary care physician, Dr. Desai. BILLING: I spent more than 30 minutes on the day of discharge coordinating care. /[id number]/MODL
== END 2018-02-10 15:15 | disposition home or self-care (01) | DRG 440 ==
LOC: F1N 02-08 01:35
PROVIDERS: ADMIT Family Medicine; ATTEND Student in an Organized Health Care Education/Training Program
DX: K85.90 Acute pancreatitis without necrosis or infection, unspecified (principal); K80.50 Calculus of bile duct without cholangitis or cholecystitis without obstruction; N28.1 Cyst of kidney, acquired; R74.0 Nonspecific elevation of levels of transaminase and lactic acid dehydrogenase [LDH]; D64.9 Anemia, unspecified; K90.0 Celiac disease; Z90.49 Acquired absence of other specified parts of digestive tract; I10 Essential (primary) hypertension; J45.909 Unspecified asthma, uncomplicated; K21.9 Gastro-esophageal reflux disease without esophagitis; Z85.46 Personal history of malignant neoplasm of prostate
CPT/HCPCS: 80307; 86709-90; 96374; G0480; J0330; J1100; J1610; J1885; J2060; J2250; J2405; J2704; J3010; Q9961

== ENCOUNTER 2018-02-28 13:31 | Emergency (ER) | payer BC ==
[2018-02-28] MEDS ORDERED: NS 1,000 ML IV ONE (13:48)
--- NOTE | 2018-02-28 13:53 | EDPHY ---
H & P Stated Complaint: epigastric pain radiating to back, nausea/diarrhea "feels like pancreatitis Time Seen by Provider: 02/28/18 13:43 HPI/ROS: CHIEF COMPLAINT: Epigastric pain HISTORY OF PRESENT ILLNESS: The patient is a 62-year-old man who was hospitalized 3 weeks ago for pancreatitis and found to have a retained stone after cholecystectomy. This was found on ERCP and he had a sphincterotomy done. His lab work and pain improved and he was discharged home after few days. He has been doing well until yesterday evening when he had 2 episodes of diarrhea, nonbloody. Today he had nausea and epigastric pain although it is now improving. No fever. No rash. No chest pain or shortness of breath. No palpitations. He reports a negative cardiac workup at [facility] 8 months ago. He had a negative echo and stress test. Severity: Moderate Modifying factors: Improving with time REVIEW OF SYSTEMS: Constitutional: denies: chills, fever, recent illness, recent injury EENTM: denies: blurred vision, double vision, nose congestion Respiratory: denies: cough, shortness of breath Cardiac: denies: chest pain, irregular heart rate, lightheadedness, palpitations Gastrointestinal/Abdominal: See HPI Genitourinary: denies: dysuria, frequency, hematuria, pain Musculoskeletal: denies: joint pain, muscle pain Skin: denies: lesions, rash, jaundice, bruising Neurological: denies: headache, numbness, paresthesia, tingling, dizziness, weakness Hematologic/Lymphatic: denies: blood clots, easy bleeding, easy bruising Immunologic/allergic: denies: HIV/AIDS, transplant 10 systems reviewed and negative except as noted EXAM: GENERAL: Well-appearing, well-nourished and in no acute distress. HEAD: Atraumatic, normocephalic. EYES: Pupils equal round and reactive to light, extraocular movements intact, sclera anicteric, conjunctiva are normal. ENT: TMs normal, nares patent, oropharynx clear without exudates. Moist mucous membranes. NECK: Normal range of motion, supple without lymphadenopathy or JVD. LUNGS: Breath sounds clear to auscultation bilaterally and equal. No wheezes rales or rhonchi. HEART: Regular rate and rhythm without murmurs, rubs or gallops. ABDOMEN: Soft, nontender, normoactive bowel sounds. No guarding, no rebound. No masses appreciated. BACK: No CVA tenderness, no spinal tenderness, step-offs or deformities EXTREMITIES: Normal range of motion, no pitting or edema. No clubbing or cyanosis. NEUROLOGICAL: Cranial nerves II through XII grossly intact. Normal speech, normal gait. 5/5 strength, normal movement in all extremities, normal sensation , normal reflexes PSYCH: Normal mood, normal affect. SKIN: Warm, dry, normal turgor, no visible rashes or lesions. Source: Patient, Family, Old records - Medical/Surgical History Hx Asthma: Yes Hx Chronic Respiratory Disease: No Hx Diabetes: No Hx Cardiac Disease: No Hx Renal Disease: No Hx Cirrhosis: No Hx Alcoholism: No Hx HIV/AIDS: No Hx Splenectomy or Spleen Trauma: No Other PMH: HTN pancretitis. ASTHMA - Family History Significant Family History: No pertinent family hx - Social History Smoking Status: Former smoker Alcohol Use: Sober Drug Use: None Constitutional: Initial Vital Signs Temperature (C) 36.5 C 02/28/18 13:34 Heart Rate 76 02/28/18 13:34 Respiratory Rate 16 02/28/18 13:34 Blood Pressure 144/89 H 02/28/18 13:34 O2 Sat (%) 97 02/28/18 13:34 O2 Delivery Mode Room Air Allergies/Adverse Reactions: gluten Allergy (Verified 02/07/18 22:21) celiac disease morphine Allergy (Verified 02/07/18 22:21) flushing, hot povidone-iodine [From Betadine] Allergy (Verified 02/07/18 22:21) redness, rash soap [From Betadine] Allergy (Verified 02/07/18 22:21) redness, rash Home Medications: Medication Instructions Recorded Aspirin 81mg (*) 02/28/18 Lisinopril 02/28/18 Zantac 02/28/18 Medical Decision Making - Diagnostics EKG Interpretation: An EKG obtained and was read and documented in trace view. Please see trace view for full reading and report. Sinus rhythm, no acute RS widening, no acute ischemic changes Imaging Results: Imaging Impressions Abdomen CT 02/28/18 13:49 Impression: 1. No abdominopelvic inflammatory mass or ascites. Thai Jett was notified of these findings by telephone at 3:03 PM on 2017 Imaging: Discussed imaging studies w/ set staff fitter Radiologist ED Course/Re-evaluation: The patient declines medications. His symptoms are improving. His abdominal exam is currently benign. Will repeat lab work and imaging. 3:30 p.m. patient is greatly relieved by the test results. His abdominal exam remains benign. He is eager to go. We discussed indications for returning. Differential Diagnosis: Partial list of the Differential diagnosis considered include but were not limited to; obstruction, pancreatitis, gastroenteritis and although unlikely based on the history and physical exam, I also considered ischemia, retained stone, perforation, hematoma. I discussed these differential diagnoses and the plan with the patient as well as the usual and expected course. The patient understands that the diagnosis is provisional and that in medicine we are not always correct and that further workup is often warranted. Usual and customary warnings were given. All of the patient's questions were answered. The patient was instructed to return to the emergency department should the symptoms at all worsen or return, otherwise to followup with the physician as we discussed. - Data Points Laboratory Results: Laboratory Results 02/28/18 13:45 02/28/18 13:45 02/28/18 02/28/18 13:45 13:45 WBC 5.71 10^3/uL 10^3/uL (3.80-9.50) RBC 4.90 10^6/uL 10^6/uL (4.40-6.38) Hgb 14.7 g/dL g/dL (13.7-17.5) Hct 43.4 % % (40.0-51.0) MCV 88.6 fL fL (81.5-99.8) MCH 30.0 pg pg (27.9-34.1) MCHC 33.9 g/dL g/dL (32.4-36.7) RDW 13.0 % % (11.5-15.2) Plt Count 275 10^3/uL 10^3/uL (150-400) MPV 9.4 fL fL (8.7-11.7) Neut % (Auto) 68.6 % % (39.3-74.2) Lymph % (Auto) 17.9 % % (15.0-45.0) Rabun % (Auto) 10.5 % % (4.5-13.0) Eos % (Auto) 2.1 % % (0.6-7.6) Baso % (Auto) 0.5 % % (0.3-1.7) Nucleat RBC Rel Count 0.0 % % (0.0-0.2) Absolute Neuts (auto) 3.92 10^3/uL 10^3/uL (1.70-6.50) Absolute Lymphs (auto) 1.02 10^3/uL 10^3/uL (1.00-3.00) Absolute Monos (auto) 0.60 10^3/uL 10^3/uL (0.30-0.80) Absolute Eos (auto) 0.12 10^3/uL 10^3/uL (0.03-0.40) Absolute Basos (auto) 0.03 10^3/uL 10^3/uL (0.02-0.10) Absolute Nucleated RBC 0.00 10^3/uL 10^3/uL (0-0.01) Immature Gran % 0.4 % % (0.0-1.1) Immature Gran # 0.02 10^3/uL 10^3/uL (0.00-0.10) Sodium 139 mEq/L mEq/L (135-145) Potassium 4.4 mEq/L mEq/L (3.5-5.2) Chloride 107 mEq/L mEq/L (97-110) Carbon Dioxide 24 mEq/l mEq/l (22-31) Anion Gap 8 mEq/L mEq/L (6-14) BUN 11 mg/dL mg/dL (7-23) Creatinine 0.8 mg/dL mg/dL (0.7-1.3) Estimated GFR > 60 Glucose 94 mg/dL mg/dL (70-100) Calcium 9.6 mg/dL mg/dL (8.5-10.4) Total Bilirubin 0.5 mg/dL mg/dL (0.1-1.4) Conjugated Bilirubin 0.2 mg/dL mg/dL (0.0-0.5) Unconjugated Bilirubin 0.3 mg/dL mg/dL (0.0-1.1) AST 29 IU/L IU/L (17-59) ALT 39 IU/L IU/L (21-72) Alkaline Phosphatase 93 IU/L IU/L (38-126) Total Protein 7.0 g/dL g/dL (6.3-8.2) Albumin 4.3 g/dL g/dL (3.5-5.0) Lipase 241 IU/L IU/L (23-300) Medications Given: Discontinued Medications Sodium Chloride (Ns) 1,000 mls @ 0 mls/hr IV EDNOW ONE; Wide Open PRN Reason: Protocol Stop: 02/28/18 13:49 Last Admin: 02/28/18 13:58 Dose: 1,000 mls Departure - Departure Disposition: Home, Routine, Self-Care Clinical Impression: Abdominal pain Qualifiers: Abdominal location: epigastric Qualified Code(s): R10.13 - Epigastric pain Diarrhea Qualifiers: Diarrhea type: unspecified type Qualified Code(s): R19.7 - Diarrhea, unspecified Condition: Fair Instructions: Acute Abdominal Pain (ED) Referrals: Nessa Desai MD [Primary Care Provider] - As per Instructions
[2018-02-28 14:01] LABS: PLATELET COUNT 275 10^3/uL (150-400)
--- NOTE | 2018-02-28 14:18 | CPEKG ---
Test Reason : OPEN Blood Pressure : / mmHG Vent. Rate : 071 BPM Atrial Rate : 069 BPM P-R Int : 163 ms QRS Dur : 104 ms QT Int : 416 ms P-R-T Axes : 055 065 055 degrees QTc Int : 453 ms Sinus rhythm Confirmed by Thai Prasad ([id number]) on 02/28/2018 2:17:36 PM Referred By: Confirmed By:Thai Prasad
[2018-02-28] MEDS ORDERED: IOPAMIDOL (ISOVUE-300) 100 ML BTL ONE (14:34)
[2018-02-28 15:39] VITALS: BP 140/96
== END 2018-02-28 15:39 | disposition home or self-care (01) ==
DX: R10.13 Epigastric pain (principal); R19.7 Diarrhea, unspecified; R11.0 Nausea; E86.9 Volume depletion, unspecified; J45.909 Unspecified asthma, uncomplicated; Z87.891 Personal history of nicotine dependence
CPT/HCPCS: Q9967